=== PATIENT | male | born 1970 | race African-American/Black ===

== ENCOUNTER 2016-06-25 15:57 | Emergency (ER) | payer OTHER ==
[~2016-06-25 15:57] MED LIST: ACET500CAP PO; ACTOPLUS MET PO; ASAB PO; ASABAYER PO; BP MED; CENTRUM PO; COREG6 PO; CRESTOR20 MG PO; GLUCOPHAGE1000 MG PO; IPRA17AE INH; LEVEMIR SC; LIPITOR40 PO; NEUR300 PO; NEXIUM PO; NEXIUM40 PO; NOVOLOG SC; NOVOPEN SC; PCET PO; PLAVIX PO; PRIN10 PO; PROAIR HFA INH; PROVHFA INH; ROXICET1 TAB PO; VENTOLIN HFA INH; ZESTRIL10 MG PO; [UNRECOGNIZED DRUG - OTHER]
[2016-06-25 17:48] LABS: BASOPHILS 0.4 %; BASOPHILS ABSOLUTE 0.03 10/3/uL (0.0-0.16); EOSINOPHILS 2.4 %; EOSINOPHILS ABSOLUTE 0.17 10/3/uL (0.0-0.53); ER CBC TAT 0 Hrs 05 Mins; HEMATOCRIT 35.5 % (40.0-51.0); HEMOGLOBIN 12.4 g/dL (13.6-17.8); IMMATURE GRANULOCYTES 0.3 %; IMMATURE GRANULOCYTES ABSOLUTE 0.02 10/3/uL (0.0-0.11); LYMPHOCYTES 21.9 %; LYMPHOCYTES ABSOLUTE 1.58 10/3/uL (0.67-4.30); MEAN CORPUS HGB CONC 34.9 g/dL (32.0-36.0); MEAN CORPUSCULAR HEMOGLOB 29.7 pg (26.0-34.0); MEAN CORPUSCULAR VOLUME 84.9 fL (80-100); MEAN PLATELET VOLUME 7.9 fL (9.2-13.0); MONOCYTES ABSOLUTE 0.65 10/3/uL (0.21-1.20); NEUTROPHILS ABSOLUTE 4.76 10/3/uL (2.02-8.40); RBC DISTRIBUTION WIDTH 12.6 % (12.0-16.0); RED CELL COUNT 4.18 10/6/uL (4.7-6.1); WHITE BLOOD CELLS 7.2 10/3/uL (4.5-10.5)
[2016-06-25 17:49] LABS: MANUAL DIFF NO %; PLATELET COUNT 429 10/3/uL (150-400)
[2016-06-25 18:03] LABS: BUN (BLOOD UREA NITROGEN) 6 MG/DL (6-23); CALCIUM, SERUM 8.4 MG/DL (8.5-10.4); CHLORIDE, SERUM 105 MMOL/L (96-112); CO2 (CARBON DIOXIDE) 30 MMOL/L (24-34); CREATININE 1.06 MG/DL (0.70-1.30); GFR AFRICAN AMERICAN 99 ML/MIN (>=60); GFR NON AFRICAN AMERICAN 86 ML/MIN (>=60); GLUCOSE, SERUM 132 MG/DL (60-99); POTASSIUM, SERUM 3.4 MMOL/L (3.5-5.3); SGOT(AST) 7 U/L (5-40); SGPT(ALT) 16 U/L (5-65); SODIUM, SERUM 144 MMOL/L (135-148)
[2016-06-25 18:04] LABS: A/G RATIO 0.8 (0.7-1.9); ALKALINE PHOSPHATASE 161 U/L (45-117); TOTAL BILIRUBIN 0.2 MG/DL (0-1.2)
[2016-06-25 18:32] LABS: ACETONE NEG
== END 2016-06-25 18:40 | disposition home or self-care (01) ==
LOC: ER 15:57
PROVIDERS: Nurse Practitioner
DX: J32.9 Chronic sinusitis, unspecified (principal); E11.9 Type 2 diabetes mellitus without complications; Z86.73 Personal history of transient ischemic attack (TIA), and cerebral infarction without residual deficits; Z79.82 Long term (current) use of aspirin; Z79.4 Long term (current) use of insulin; Z79.84 Long term (current) use of oral hypoglycemic drugs; Z79.899 Other long term (current) drug therapy
CPT/HCPCS: 70450; 80053; 82009; 85025; 96374; 96375; 99284; J2405